=== PATIENT | female | born 1980 | race Caucasian/White ===

== ENCOUNTER 2017-08-31 09:43 | Emergency (ER) | payer OTHER | END 2017-08-31 11:40 | disposition home or self-care (01) | LOC: ERS 09:43 | DX: B34.9 Viral infection, unspecified (principal); M79.7 Fibromyalgia; I10 Essential (primary) hypertension; F32.9 Major depressive disorder, single episode, unspecified; F41.9 Anxiety disorder, unspecified; Z87.891 Personal history of nicotine dependence | CPT/HCPCS: 93005 ==

== ENCOUNTER 2017-10-08 15:17 | Outpatient (CLI) | payer OTHER | END 2017-10-08 15:18 | disposition home or self-care (01) | LOC: BICRAD 15:17 | PROVIDERS: ATTEND Family Medicine | DX: J40 Bronchitis, not specified as acute or chronic (principal) | CPT/HCPCS: 71046 ==

== ENCOUNTER 2018-03-31 09:55 | Outpatient (CLI) | payer MEDICAID, OTHER ==
--- NOTE | 2018-03-31 11:23 | ULT ---
TRANSVAGINAL PELVIS ULTRASOUND WITH DOPPLER: HISTORY: Pelvic pain. COMPARISON: None. TECHNIQUE: Real-time mauro-scale, color Doppler, and spectral analysis of the pelvis was performed, transabdomina l and transvaginal approach. FINDINGS: The uterus measures 11.5 x 8 x 5.9 cm. Endometrial thickness is abnormally thickened, measuring 3.4 cm. The left ovary measures 4 x 3.6 x 3.1 cm with adequate vascular flow. There is a 3.7 cm cyst. The right ovary is not seen. There is a hypoechoic focus within the uterine fundus. IMPRESSION: Abnormally thickened endometrium with a hypoechoic focus near the fundus. Findings are concerning fo r a failed gestation. Recommend correlation with the patient's hCG. The hypoechoic area in the fund us may reflect a crenulated gestational sac. If there is a somewhat elevated hCG, an hCG trend would be recommended. If it is not elevated, as would be expected, the patient may benefit from curettage . POS: SERENE
== END 2018-03-31 09:56 | disposition home or self-care (01) ==
LOC: SCSULT 09:55
PROVIDERS: ATTEND Nurse Practitioner Women's Health
DX: R10.2 Pelvic and perineal pain (principal); N85.8 Other specified noninflammatory disorders of uterus
CPT/HCPCS: 76856

== ENCOUNTER 2018-04-07 17:56 | Emergency (ER) | payer MEDICAID, SELFPAY ==
[2018-04-07 18:39] LABS: Bilirubin Negative (Negative); Blood, Urine Small (Negative); Clarity CLEAR (Clear); Glucose, Urine (Dipstick) Negative (Negative); Leukocyte Negative (Negative); Nitrite Negative (Negative); Protein, Urine (Dipstick) 30 mg/dL (Neg-Trace); Specific Gravity, Urine 1.024 (1.002-1.036); Urobilinogen 0.2 mg/dL (0.2-1.0); pH, Urine 6.5 (5.0-9.0)
[2018-04-07 18:41] LABS: Bacteria/HPF Rare-Few HPF (None Seen); Hyaline Casts/LPF 0-3 HYALINE CAST LPF (0-3 Hyaline); Squamous Epithelial 0-3 HPF (0-3); WBC/HPF 0-3 HPF (0-3)
[2018-04-07 19:32] LABS: #Basophils 0.1 thou/uL (0.0-0.2); #Eosinphils 0.1 thou/uL (0.0-0.7); #Monocytes 0.4 thou/uL (0.11-0.59); #Neutrophils 4.7 thou/uL (1.40-6.50); %Basophils 0.8 % (0.0-1.0); %Eosinophils 1.1 % (0.0-10.0); %Lymphocytes 27.2 % (21.0-51.0); %Monocytes 5.8 % (0.0-10.0); %Neutrophils 65.1 % (42.0-75.0); Hemoglobin 12.2 g/dL (12.0-16.0); Mean Corpuscular HGB CONC 34.4 g/dL (32.0-36.0); Mean Corpuscular Hemoglobin 30.5 pg (27.0-31.0); Mean Corpuscular Volume 88.7 fL (78.0-98.0); Mean Platelet Volume 6.7 fL (7.4-10.4); Platelet Count 230 thou/uL (130-400); RBC Distribution Width 13.4 % (11.5-14.5); Red Blood Cell (RBC) Count 4.01 mill/uL (4.20-5.40); White Blood Cell (WBC) Count 7.3 thou/uL (4.8-10.8)
--- NOTE | 2018-04-07 21:57 | PDOC.EVN ---
Event Note - Event Note Event Note: OBGYN Consult: ED Bed 5 Time: 3009-5549 Requesting MD: Trevor Schroeder Reason: thickened ES on sono in a 38 yo HPI: patient of [facility], with 2 mos of HMB. S/P BTL in past. She is a 38 yo with BTL 2003. No SOB, no lightheadedness, no clots now...had heavy VB X 2 mos Past med: none Surg: BTL Allergies: Rocephin and Xeraquil Physical: VSAFEB Pulse 80s NAD No active VB on pelvic CX parous Sono with "thickened ES" possible polyp HgB: 12 Assessment and plan: Possible endometrial poly by sono... Procedure: I performed an EMB after informed consent. CX prepped and EMB X 4 passsess with moderate tissue sent. Patient tolerated well. Order placed by me. We will add TSH Plan: F/U with [facility] No need for blood at this time and not actively bleeding PALM-CEIN classification d/w Fr schroeder. Residents assisted with EMB (Juanjo)
[2018-04-07] MEDS ORDERED: Ibuprofen 800 MG TAB ONE (22:27)
== END 2018-04-07 22:30 | disposition home or self-care (01) ==
LOC: ERS 17:56
DX: N93.9 Abnormal uterine and vaginal bleeding, unspecified (principal); I10 Essential (primary) hypertension; F41.9 Anxiety disorder, unspecified; F31.9 Bipolar disorder, unspecified; Z87.891 Personal history of nicotine dependence; Z79.899 Other long term (current) drug therapy
CPT/HCPCS: 81003; 81015; 84443; 84702; 85025; 86850; 86900; 86901; 88305; 99284